=== PATIENT | male | born 1970 | race Caucasian/White ===

== ENCOUNTER → 2020-01-13 | Outpatient (CLI) | payer BC | LOC: COL.PUL 07:40 | DX: R06.02 Shortness of breath (principal) ==

== ENCOUNTER 2020-02-22 08:38 | Outpatient (CLI) | payer BC ==
[~2020-02-22] VITALS: Ht 170.2 cm; Wt 69.0 kg
[2020-02-22] VITALS (7 sets, daily range): BP systolic 122–140; BP diastolic 75–92; PULSE 63–73
[2020-02-22] MEDS ORDERED: ZESTRIL 5MG5 MG PO (09:13)
[2020-02-22] MEDS ORDERED: VITAMIND3 5000 PO (09:14)
[2020-02-22] MEDS ORDERED: VITAMIN B COMPL1 SGL PO (09:14)
[2020-02-22 11:07] LABS: GLUCOSE,CSF 59 mg/dL (40-70); TOTAL PROTEIN,CSF 41 mg/dL (15-45)
[2020-02-22 12:01] LABS: CSF APPEARANCE CLEAR; CSF COLOR COLORLESS; CSF MONONUCLEAR 100 % (70-100); CSF POLYMORPHONUCLEAR 0 % (0-6); CSF RBC 14 /mm3 (0-0)
--- NOTE | 2020-02-22 12:11 | NUR ---
Discharge instructions given to pt.Pt escorted out by this nurse.
== END 2020-02-22 12:38 | disposition home or self-care (01) ==
LOC: COL.RAD 08:38
PROVIDERS: Psychiatry & Neurology Neurology
DX: G37.9 Demyelinating disease of central nervous system, unspecified (principal)

== ENCOUNTER 2021-02-07 17:50 | Emergency (ER) | payer BC ==
[~2021-02-07] VITALS: Ht 170.2 cm; Wt 70.5 kg
[~2021-02-07 17:50] MED LIST: VITAMIN B COMPL1 SGL PO; VITAMIND3 5000 PO; ZESTRIL 5MG5 MG PO
[2021-02-07 19:20] LABS: BASO # 0.1 K/mm3 (0.0-0.2); BASO % 1.4 % (0.0-2.0); EOS # 0.5 K/mm3 (0.0-0.7); EOS % 8.8 % (0-4.0); GRAN # 3.2 K/mm3 (1.4-6.5); GRAN % 53.2 % (42.2-75.2); HEMATOCRIT 43.2 % (42.0-52.0); LYMPH # 1.6 K/mm3 (1.2-3.4); LYMPH % 26.9 % (20.0-51.0); MEAN CELL VOLUME 91 fl (80.0-100.0); MEAN CORPUSCULAR HEMOGLOBIN 32 pg (27.0-31.0); MEAN CORPUSCULAR HGB CONC 35 g/dl (33.0-37.0); MEAN PLATELET VOLUME 9.4 fl (7.4-10.4); MONO # 0.6 K/mm3 (0.1-0.6); MONO % 9.5 % (1.7-9.3); PLATELET COUNT 175 K/mm3 (130-400); RED BLOOD COUNT 4.75 M/mm3 (4.20-5.60); REDCELL DISTRIBUTION WIDTH-CV 11.3 % (11.5-14.5)
[2021-02-07 19:34] LABS: ALBUMIN 4.1 gm/dL (3.5-5.0); BILIRUBIN,TOTAL 0.4 mg/dL (0.2-1.2); C-REACTIVE PROTEIN 0.07 mg/dL (0.00-0.50); CALCIUM 9.2 mg/dL (8.4-10.2); CREATININE, serum 0.82 mg/dL (0.72-1.25); POTASSIUM 3.9 mmol/L (3.5-4.5); TOTAL PROTEIN 7.1 gm/dL (6.2-8.1)
[2021-02-07 20:13] LABS: COLLECTION METHOD CLEAN CATCH
[2021-02-07 20:23] LABS: MUCOUS Present /lpf; PH 6 (5-8); SQUAMOUS EPITHELIAL None Seen /hpf; URINE APPEARANCE Clear; URINE BACTERIA None Seen /hpf; URINE BILIRUBIN Negative (NEGATIVE); URINE BLOOD Negative (NEGATIVE); URINE COLOR Straw; URINE GLUCOSE Negative (NEGATIVE); URINE KETONE Negative (NEGATIVE); URINE LEUKOCYTE ESTERASE Negative (NEGATIVE); URINE NITRATE Negative (NEGATIVE); URINE PROTEIN(semi-quant) Negative (NEGATIVE); URINE RBC 0-2 /hpf; URINE UROBILINOGEN Negative (NEGATIVE)
[2021-02-07 20:45] VITALS: BP 136/79; PULSE 76; TEMP 98.1
== END 2021-02-07 20:45 | disposition home or self-care (01) ==
LOC: COL.ER 17:50
PROVIDERS: Nurse Practitioner Primary Care
DX: R10.11 Right upper quadrant pain (principal)
CPT/HCPCS: J7030

== ENCOUNTER → 2021-02-12 | Outpatient (CLI) | payer BC | LOC: COL.RAD 09:43 | DX: R10.11 Right upper quadrant pain (principal) ==